=== PATIENT | female | born 1960 | race African-American/Black ===

== ENCOUNTER 2017-04-18 19:23 | Emergency (ER) | payer OTHER, BC ==
[2017-04-18 19:32] VITALS: TEMP 98.4; BMI 31.9
--- NOTE | 2017-04-18 20:38 | PDOC ---
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 She stopped taking it away except for the right shoulder. She went to her doctor today who found that her blood pressure was high and he sent her to the ER. Blood pressure has improved here, she has no history of high blood pressure. Patient states that her pain in her shoulder hurts when she moves it and it similar to a pain she's had in the past. Patient states she's been taking Aleve, Advil with no relief. She has an orthopedist who she can see. Patient states that her doctor did an EKG in the office and it was normal. No indication for one here GENERAL/CONSTITUTIONAL: No fever, weakness. dizziness HEAD, EYES, EARS, NOSE AND THROAT: No change in vision. No ear pain or discharge. No sore throat. CARDIOVASCULAR: No chest pain RESPIRATORY: No shortness of breath or cough GASTROINTESTINAL: No pain, nausea, vomiting, diarrhea or constipation GENITOURINARY: No dysuria MUSCULOSKELETAL: No neck or back pain, +right shoulder SKIN: No rash NEUROLOGIC: No headache, vertigo, loss of consciousness, or loss of sensation. GENERAL: The patient is awake, alert, and fully oriented, in no acute distress. HEAD: Normal with no signs of trauma. EYES: Pupils equal, round and reactive to light, sclera anicteric, conjunctiva clear. ENT: pharynx: no erythema, no exudate, uvula midline NECK: supple CHEST: clear, nontender, rr ABD: soft, nontender EXTREMITIES: right shoulder with mild tenderness, able to raise over 90degrees, no signs of infection or swelling, is negative exam, neurovascular intact. Rest of extremities, normal range of motion, no edema. NEUROLOGICAL: Normal speech, normal gait. SKIN: Warm, Dry Past History - Past Medical History Allergies/Adverse Reactions: Allergies Allergy/AdvReac Type Severity Reaction Status Date / Time meloxicam AdvReac Intermediate Swelling Verified 04/18/17 20:16 Home Medications: Ambulatory Orders Oxycodone HCl/Acetaminophen [Percocet 5-325 mg Tablet] 1 tab PO Q6H PRN #20 tablet MDD 4 04/18/17 - Suicide/Smoking/Psychosocial Hx Smoking History: Never smoked Have you smoked in the past 12 months: No Information on smoking cessation initiated: No Hx Alcohol Use: No Drug/Substance Use Hx: No *Physical Exam - Vital Signs Last Vital Signs Temp Pulse Resp BP Pulse Ox 98.4 F 92 H 18 148/91 100 04/18/17 19:24 04/18/17 19:24 04/18/17 19:24 04/18/17 19:24 04/18/17 19:24 Medical Decision Making - Medical Decision Making 04/18/17 20:41 Patient with right shoulder pain, similar to the past, had been worse earlier in the week, but has had muscle spasms which are getting better except for the right shoulder she was found to have high blood pressure in her doctor's office which has resolved upon the ER. No other concerning findings, tenderness to the shoulder, pain with movement, consistent with musculoskeletal pain. Patient will follow-up with her orthopedist and she will also have her blood pressure rechecked by her doctor. No indication for further workup or testing in the ER *DC/Admit/Observation/Transfer Diagnosis at time of Disposition: Shoulder pain, right Qualifiers: Chronicity: unspecified Qualified Code(s): M25.511 - Pain in right shoulder; M25.511 - Pain in right shoulder - Discharge Dispostion Disposition: HOME Condition at time of disposition: Stable Admit: No - Prescriptions Prescriptions: Oxycodone HCl/Acetaminophen [Percocet 5-325 mg Tablet] 1 tab PO Q6H PRN #20 tablet MDD 4 PRN Reason: Pain - Patient Instructions Additional Instructions: take the percocet at bedtime and up to 4 times daily follow up with dr. zaman get your bp rechecked. return to er if worse
[2017-04-18 20:47] VITALS: BP 134/97; PULSE 72
== END 2017-04-18 20:49 | disposition home or self-care (01) ==
LOC: JERFT 19:23
DX: M25.511 Pain in right shoulder (principal)
CPT/HCPCS: 99281-25

== ENCOUNTER 2020-01-19 09:57 | Day surgery (SDC) | payer OTHER, BC ==
[2020-01-16 13:49] VITALS: BMI 34.2
[2020-01-19] MEDS ORDERED: MIDAZOLAM HCL 2 MG/2 ML SINGLE DOSE VIAL ONE ×3 (12:21)
[2020-01-19] MEDS ORDERED: DEXAMETHASONE SOD PHOSPHATE 4 MG/1 ML VIAL ONE (12:26)
[2020-01-19] MEDS ORDERED: KETOROLAC TROMETHAMINE 30 MG/1 ML VIAL ONE (12:36)
--- NOTE | 2020-01-19 12:36 | OP ---
Operative Note - Note: Operative Date: 01/19/20 Pre-Operative Diagnosis: Left renal stone Operation: Left ESWL Findings: 6 mm lower pole Left renal stone Post-Operative Diagnosis: Same as Pre-op Surgeon: Wm Ragsdale Anesthesia: Fractional Estimated Blood Loss (mls): 0 Operative Report Dictated: Yes
[2020-01-19] MEDS ORDERED: ONDANSETRON 4 MG/2 ML VIAL IVPUSH PRN (12:56)
[2020-01-19] MEDS ORDERED: PROMETHAZINE HCL 25 MG/1 ML VIAL IVPB PRN (12:56)
[2020-01-19] MEDS ORDERED: oxyCODONE HCL 5 MG TABLET PO PRN (12:56)
[2020-01-19] MEDS ORDERED: LACTATED RINGERS SOLUTION 1,000 ML IV SCH (13:00)
[2020-01-19 15:36] VITALS: BP 111/77; PULSE 61; TEMP 97.6
--- NOTE | 2020-01-19 20:44 | OP ---
DATE OF OPERATION: 01/19/2020 PREOPERATIVE DIAGNOSIS: Left renal stone. POSTOPERATIVE DIAGNOSIS: Left renal stone. PROCEDURE: Left extracorporeal shock wave lithotripsy. ATTENDING: Nica Harvey MD ANESTHESIA: Fractional. DESCRIPTION OF PROCEDURE: Patient was brought in the operating room, placed in a supine position on the operating room table. Ultrasonography and fluoroscopy were performed. A 6-mm left lower pole stone was identified. Anesthesia and preoperative antibiotics were then administered. Twenty-five impulses at 17 joules of power were administered to the stone. Excellent fragmentation of the stone was noted under real time ultrasonography and fluoroscopy. There were no complications noted. The patient tolerated the procedure very well. NICA HARVEY M.D. /[id number]
== END 2020-01-19 16:00 | disposition home or self-care (01) ==
LOC: JASU-SURG 09:57
PROVIDERS: ATTEND Urology
PROC: 0TF4XZZ Fragmentation in Left Kidney Pelvis, External Approach (ICD-10-PCS; principal; 2020-01-19 12:30)
DX: N20.0 Calculus of kidney (principal)
CPT/HCPCS: 94760